=== PATIENT | male | born 1985 | race Caucasian/White ===

== ENCOUNTER 2016-05-15 15:14 | Emergency (ER) | payer BC, OTHER ==
--- NOTE | 2016-05-15 18:13 | EDM.PDOC ---
ED HPI Skin/Rash - General Chief Complaint: Skin Complaint Stated Complaint: CYST ON NECK Time Seen by Provider: 05/15/16 18:08 Source: Reports: Patient History Limitations: Reports: No limitations - History of Present Illness INITIAL COMMENTS - FREE TEXT/NARRATIVE: 30 yo Symptom Onset Date: 05/12/16 Symptom Onset Time: 12:00 Timing: Reports: still present Location, Skin: Reports: neck Severity: moderate Known Identified Source: possible/maybe Place of Occurrence: home Sick Contact: no Associated Symptoms: Reports: no other symptoms Similar Symptoms Previously: no Recent Medical Care: no - Related Data Allergies Allergy/AdvReac Type Severity Reaction Status Date / Time No Known Allergies Allergy Verified 05/15/16 15:55 Home Meds: Ambulatory Orders Medication Instructions Recorded Confirmed . [No Known Home Meds] 05/15/16 05/15/16 Past Medical History HEENT History: Reports: None Cardiovascular History: Reports: None Respiratory History: Reports: None Gastrointestinal History: Reports: None Genitourinary History: Reports: None Musculoskeletal History: Reports: None Neurological History: Reports: None Psychiatric History: Reports: None Endocrine/Metabolic History: Reports: None Hematologic History: Reports: None Immunologic History: Reports: None Oncologic (Cancer) History: Reports: None Dermatologic History: Reports: None - Infectious Disease History Infectious Disease History: Reports: Chicken pox - Past Surgical History Head Surgeries/Procedures: Reports: None Social & Family History - Tobacco Use Smoking Status *Q: Never Smoker Second Hand Smoke Exposure: No - Caffeine Use Caffeine Use: Reports: Soda - Recreational Drug Use Recreational Drug Use: No ED ROS GENERAL - Review of Systems Review Of Systems: See Below Constitutional: Reports: no symptoms HEENT: Reports: No symptoms Respiratory: Reports: No Symptoms Cardiovascular: Reports: No symptoms Endocrine: Reports: no symptoms GI/Abdominal: Reports: No symptoms : Reports: no symptoms Musculoskeletal: Reports: no symptoms Skin: Reports: erythema, other (right side of neck raised firm erythema w/ tenderness) Neurological: Reports: No Symptoms Psychiatric: Reports: No symptoms Hematologic/Lymphatic: Reports: no symptoms Immunologic: Reports: no symptoms ED EXAM, SKIN/RASH Exam: See Below Exam Limited By: No limitations General Appearance: alert, no apparent distress, obese Ears: normal external exam Nose: normal inspection Throat/Mouth: Normal inspection, Normal lips Head: atraumatic Neck: normal inspection, supple Respiratory/Chest: no respiratory distress Cardiovascular: normal peripheral pulses, regular rate, rhythm GI/Abdominal: normal bowel sounds Neurological: alert, oriented Psychiatric: normal affect Skin: Warm, Erythema, Other (raised tender erythematous firm induration approx 2cm ) ED SKIN PROCEDURES - Additional/Other Procedure(s) Other (Free Text) Procedure(s): Induration cleaned with betadine and 1% Lidocaine infused and purulent material 3cc aspirated and cultures sent. Course - Vital Signs Last Recorded V/S: Last Vital Signs Temp 36.4 C 05/15/16 15:51 Pulse 79 05/15/16 15:51 Resp 16 05/15/16 15:51 BP 134/92 H 05/15/16 15:51 Pulse Ox 97 05/15/16 15:51 - Orders/Labs/Meds Orders: Active Orders 24 hr Category Date Time Status CULTURE WOUND + SMEAR [RM] Stat Lab 05/15/16 18:20 Ordered Cephalexin [Keflex] Med 05/15/16 18:23 Once 500 mg PO ONETIME ONE Departure - Departure Time of Disposition: 18:28 Disposition: Home, Self-Care 01 Condition: good Clinical Impression: Abscess Forms: ED Department Discharge Additional Instructions: keep area covered w/ dry gauze Take oral antibiotic as prescribed only : Keflex 500mg QID # 40 F/U w/ PCP 2-3 days for re-check and review culture report - My Orders Last 24 Hours: My Active Orders 05/15/16 18:20 CULTURE WOUND + SMEAR [RM] Stat 05/15/16 18:23 Cephalexin [Keflex] 500 mg PO ONETIME ONE - Assessment/Plan Last 24 Hours: My Active Orders 05/15/16 18:20 CULTURE WOUND + SMEAR [RM] Stat 05/15/16 18:23 Cephalexin [Keflex] 500 mg PO ONETIME ONE
[2016-05-15] MEDS ORDERED: Cephalexin 500 MG Cap PO ONE ×2 (18:23→18:35)
[2016-05-15 18:24] VITALS: BP 147/91
[2016-05-15] MEDS ORDERED: Cephalexin 500 MG Cap ONE (18:35)
== END 2016-05-15 18:41 | disposition home or self-care (01) ==
LOC: DL.ED 15:14
DX: L02.11 Cutaneous abscess of neck (principal)
CPT/HCPCS: 10160; 87070; 87205; 99283; A9270

== ENCOUNTER 2016-11-22 12:28 | Emergency (ER) | payer OTHER, BC ==
--- NOTE | 2016-11-22 12:34 | EDM.PDOC ---
ED HPI GENERAL MEDICAL PROBLEM - General Chief Complaint: Laceration Stated Complaint: [id number] CUT THUMB Time Seen by Provider: 11/22/16 12:33 Source of Information: Reports: Patient, RN, RN Notes Reviewed History Limitations: Reports: No Limitations - History of Present Illness INITIAL COMMENTS - FREE TEXT/NARRATIVE: Arrives by POV with c/o cut to left thumb on a knife just prior to arrival. Denies any other injury. Last tetanus vaccine was 6 yrs ago per pt. Onset: Today, Sudden Duration: Constant Location: Reports: Upper Extremity, Left Quality: Reports: Ache Severity: Mild Improves with: Reports: None Worsens with: Reports: None Associated Symptoms: Reports: No Other Symptoms - Related Data Allergies Allergy/AdvReac Type Severity Reaction Status Date / Time No Known Allergies Allergy Verified 11/22/16 12:31 Home Meds: Home Meds . [No Known Home Meds] 05/15/16 [History] Past Medical History HEENT History: Reports: None Cardiovascular History: Reports: None Respiratory History: Reports: None Gastrointestinal History: Reports: None Genitourinary History: Reports: None Musculoskeletal History: Reports: None Neurological History: Reports: None Psychiatric History: Reports: None Endocrine/Metabolic History: Reports: Obesity/BMI 30+ Hematologic History: Reports: None Immunologic History: Reports: None Oncologic (Cancer) History: Reports: None Dermatologic History: Reports: None - Infectious Disease History Infectious Disease History: Reports: Chicken Pox - Past Surgical History Head Surgeries/Procedures: Reports: None Social & Family History - Family History Family Medical History: Noncontributory - Tobacco Use Smoking Status *Q: Never Smoker Second Hand Smoke Exposure: No - Caffeine Use Caffeine Use: Reports: Soda - Recreational Drug Use Recreational Drug Use: No - Living Situation & Occupation Living situation: Reports: with Family Occupation: Employed ED ROS GENERAL - Review of Systems Review Of Systems: ROS reveals no pertinent complaints other than HPI. ED EXAM, SKIN/RASH Exam: See Below Exam Limited By: No Limitations General Appearance: Alert, WD/WN, No Apparent Distress Head: Atraumatic, Normocephalic Respiratory/Chest: No Respiratory Distress Cardiovascular: Normal Peripheral Pulses Extremities: Normal Range of Motion, Normal Capillary Refill, Other (1.5cm linear lac. to left thumb to depth of subcutaneous tissue, no active bleeding, no FB) Neurological: Alert, No Motor/Sensory Deficits ED SKIN PROCEDURES - Laceration/Wound Repair Left Finger Lac/Wound length In cm: 1.5 (left thumb) Appearance: Subcutaneous, Linear, Clean Distal NVT: Neuro & Vascular Intact, No Tendon Injury Anesthetic Type: Local Local Anesthesia - Lidocaine (Xylocaine): 1% Plain Local Anesthetic Volume: Other (10cc) Skin Prep: Chlorhexidine (Hibiciens), Saline Saline Irrigation (cc's): 1,000 Exploration/Debridement/Repair: Wound Explored, In a Bloodless Field, Explored to Base, Minimal Debridement, Minimally Undermined Closed with: Sutures Suture Size: 4-0 # of Sutures: 5 Suture Type: Nylon, Interrupted Drain Placement: No Sterile Dressing Applied: Nurse Tetanus Status Addressed: Yes Complications: No Course - Vital Signs Last Recorded V/S: Last Vital Signs Temp 37.0 C 11/22/16 12:35 Pulse 87 11/22/16 12:35 Resp 18 11/22/16 12:35 BP 144/99 H 11/22/16 12:35 Pulse Ox 98 11/22/16 12:35 - Orders/Labs/Meds Orders: Active Orders 24 hr Category Date Time Status Bacitracin [Bacitracin Oint 1 GM] Med 11/22/16 12:38 Once 1 dose TOP ONETIME ONE Lidocaine 1% [Xylocaine-MPF 1%] Med 11/22/16 12:38 Once 30 ml INJECT ONETIME ONE Departure - Departure Time of Disposition: 12:55 Disposition: Home, Self-Care 01 Condition: Good Clinical Impression: Laceration of left thumb Qualifiers: Encounter type: initial encounter Damage to nail status: without damage Foreign body presence: without foreign body Qualified Code(s): S61.012A - Laceration without foreign body of left thumb without damage to nail, initial encounter - Discharge Information Instructions: Laceration Care, Adult, [id number] Forms: ED Department Discharge Additional Instructions: Follow up in clinic in 7 to 10 days for suture removal. Return to ER if any signs of infection develop. - My Orders Last 24 Hours: My Active Orders 11/22/16 12:38 Bacitracin [Bacitracin Oint 1 GM] 1 dose TOP ONETIME ONE Lidocaine 1% [Xylocaine-MPF 1%] 30 ml INJECT ONETIME ONE - Assessment/Plan Last 24 Hours: My Active Orders 11/22/16 12:38 Bacitracin [Bacitracin Oint 1 GM] 1 dose TOP ONETIME ONE Lidocaine 1% [Xylocaine-MPF 1%] 30 ml INJECT ONETIME ONE
[2016-11-22 12:37] VITALS: BP 144/99
[2016-11-22] MEDS ORDERED: Lidocaine 1% 30 ML SDV INJECT ONE (12:38)
[2016-11-22] MEDS ORDERED: Bacitracin Oint 1 GM U/D Packet TOP ONE (12:38)
== END 2016-11-22 13:18 | disposition home or self-care (01) ==
LOC: DL.ED 12:28
DX: S61.012A Laceration without foreign body of left thumb without damage to nail, initial encounter (principal); E66.9 Obesity, unspecified; W26.0XXA Contact with knife, initial encounter
CPT/HCPCS: 12001; 99283